=== PATIENT | female | born 1950 | race Caucasian/White ===

== ENCOUNTER 2017-03-18 09:12 | Outpatient (CLI) | payer MEDICARE, MEDICAID ==
--- NOTE | 2017-03-18 11:21 | RAD ---
ABDOMEN ONE VIEW: History: 66-year-old female with history of renal calculus. FINDINGS: Multiple small bilateral renal calculi are again noted. Gas and fecal material is noted in the colon and some fecal material and gastric air partially obscure both kidneys. IMPRESSION: Bilateral renal calculi. No overt ureteral calculus. POS: [facility]
== END 2017-03-18 09:13 | disposition home or self-care (01) ==
LOC: RAD 09:12
PROVIDERS: ATTEND Urology
DX: N20.0 Calculus of kidney (principal)
CPT/HCPCS: 51798; 74000; 99213; G0463

== ENCOUNTER 2017-08-04 09:28 | Outpatient (CLI) | payer MEDICARE, MEDICAID ==
[2017-08-04 10:11] LABS: Anion Gap 9 mmol/L (10-20); BUN (Urea Nitrogen) 24 mg/dL (9.8-20.1); Calc. Creatinine Clearance 0 mL/min (70-130); Calcium 9.7 mg/dL (7.8-10.44); Carbon Dioxide 28 mmol/L (23-31); Chloride 108 mmol/L (98-107); Estimated GFR-MDRD 76; Glucose 99 mg/dL (80-115); Potassium 3.9 mmol/L (3.5-5.1); Sodium 141 mmol/L (136-145)
[2017-08-04 10:16] LABS: Bilirubin Negative (Negative); Blood, Urine Moderate (Negative); Clarity CLEAR (Clear); Glucose, Urine (Dipstick) Negative (Negative); Leukocyte Small (Negative); Nitrite Negative (Negative); Protein, Urine (Dipstick) Negative (Neg-Trace); Specific Gravity, Urine 1.014 (1.002-1.036); Urobilinogen 0.2 mg/dL (0.2-1.0); pH, Urine 7.5 (5.0-9.0)
[2017-08-04 10:26] LABS: Bacteria/HPF None Seen HPF (None Seen); Hyaline Casts/LPF 0-3 HYALINE CAST LPF (0-3 Hyaline); Pathc Cast-AUWi Flag 0.14 (0-2.49); RBC/HPF 21-50 HPF (0-3); Squamous Epithelial 0-3 HPF (0-3)
--- NOTE | 2017-08-04 12:26 | CT ---
CT OF THE ABDOMEN AND PELVIS WITH AND WITHOUT IV CONTRAST: INDICATION: History of renal stone and placement of a previous left renal stent. COMPARISON: CT of the abdomen and pelvis with and without contrast dated 08/06/16. FINDINGS: There has been interval development of a 7 mm calculus within the right renal pelvis from the prior e xamination. There are multiple 3-4 mm nonobstructing calculi within the superior pole of the right k idney. There are 1-2 mm calculi within the mid to inferior pole of the right kidney. The overall ex tent of the renal stone burden is largely stable. The multiple 1-2 mm calculi within the left kidney are relatively stable. There is a 4 mm calculus w ithin the left mid kidney, which is stable. Previously seen 5 mm left UPJ stone is no longer present . There was a small 3 mm stone within the right ureter that is no longer present. There are stable bilateral renal cysts. The largest within the left kidney measures 1.4 cm, which is stable and mildly septated. The largest within the right kidney measures 1.1 cm and is roughly stab le to the prior exam. No gross urothelial lesion is evident. There is only partial opacification of the mid to distal left ureter. No hydronephrosis is evident. No definite solid renal lesion is evident. There is fatty infiltration of the liver. There is a calcified granuloma within the spleen. Pancrea s and adrenal glands are unremarkable. There are scattered colonic diverticula. The bladder, rectum , and perirectal soft tissues appear within normal limits. There is scattered degenerative and osteo arthritic change. IMPRESSION: 1. Interval passage of the left ureteropelvic junction and right ureteral stone present on the shantel rison exam dated 08/06/16. 2. Renal stone burden overall is largely stable. The suspected 5 mm stone within the superior pole of the right kidney on the prior exam is likely slightly increased in size now measuring up to 7 mm w ithin the right renal pelvis. 3. Stable bilateral renal cysts. 4. No gross urothelial lesion. There is suboptimal opacification of the mid to distal left ureter o n the delayed phase images. 5. Fatty liver. 6. Colonic diverticulosis. POS: [facility]
== END 2017-08-04 09:29 | disposition home or self-care (01) ==
LOC: CT 09:28
PROVIDERS: ATTEND Urology
DX: N20.2 Calculus of kidney with calculus of ureter (principal); N28.1 Cyst of kidney, acquired; K76.0 Fatty (change of) liver, not elsewhere classified; K57.30 Diverticulosis of large intestine without perforation or abscess without bleeding
CPT/HCPCS: 36415; 74178; 80048; 81001; 87086

== ENCOUNTER 2017-10-06 10:14 | Outpatient (CLI) | payer MEDICARE, OTHER, MEDICAID ==
[2017-10-06 10:45] LABS: Bilirubin Negative (Negative); Blood, Urine Large (Negative); Clarity CLOUDY (Clear); Glucose, Urine (Dipstick) Negative (Negative); Leukocyte Large (Negative); Nitrite Negative (Negative); Protein, Urine (Dipstick) 30 mg/dL (Neg-Trace); Specific Gravity, Urine 1.015 (1.002-1.036); Urobilinogen 0.2 mg/dL (0.2-1.0); pH, Urine 6.5 (5.0-9.0)
[2017-10-06 10:50] LABS: Bacteria/HPF Rare-Few HPF (None Seen); RBC/HPF GREATER THAN 50-TNTC HPF (0-3); Squamous Epithelial None Seen HPF (0-3)
[2017-10-06 10:54] LABS: Pathc Cast-AUWi Flag 5.23 (0-2.49)
[2017-10-06 11:11] LABS: Hyaline Casts/LPF 0-3 HYALINE CAST LPF (0-3 Hyaline); Other Casts/LPF None Seen LPF (0-3 Hyaline)
--- NOTE | 2017-10-06 12:24 | RAD ---
KUB: HISTORY: Renal calculi. COMPARISON: 09/03/17 CT examination. FINDINGS: The bowel gas pattern is nonobstructed. Punctate 2-3 mm lower pole left renal calculi are seen. In what is felt to be the region of the right renal pelvis is an approximately 7 mm calcification. The lower pole of the right kidney is obscured by stool. Calcifications in the pelvis are felt most like ly to represent phleboliths. IMPRESSION: Bilateral renal calculi. POS: [facility]
== END 2017-10-06 10:15 | disposition home or self-care (01) ==
LOC: RAD 10:14
PROVIDERS: ATTEND Urology
DX: N20.0 Calculus of kidney (principal); R35.0 Frequency of micturition
CPT/HCPCS: 74018; 81001; 87077; 87086; 87186

== ENCOUNTER 2017-10-24 11:25 | Outpatient (CLI) | payer MEDICARE, MEDICAID ==
[2017-10-24 11:57] LABS: Bilirubin Negative (Negative); Blood, Urine Moderate (Negative); Clarity CLEAR (Clear); Glucose, Urine (Dipstick) Negative (Negative); Leukocyte Moderate (Negative); Nitrite Negative (Negative); Protein, Urine (Dipstick) Trace mg/dL (Neg-Trace); Specific Gravity, Urine 1.013 (1.002-1.036); Urobilinogen 0.2 mg/dL (0.2-1.0); pH, Urine 6.5 (5.0-9.0)
[2017-10-24 11:59] LABS: Bacteria/HPF None Seen HPF (None Seen); Hyaline Casts/LPF 4-6 HYALINE CAST LPF (0-3 Hyaline); Pathc Cast-AUWi Flag 0.72 (0-2.49); RBC/HPF 21-50 HPF (0-3); WBC/HPF 21-50 HPF (0-3)
[2017-10-24 12:19] LABS: Renal Epithelial None Seen HPF (0-3); Transitional Epithelial NONE SEEN HPF (0-3)
[2017-10-24 12:19] LABS: Hemoglobin 10.4 g/dL (12.0-16.0); Mean Corpuscular HGB CONC 32.9 g/dL (32.0-36.0); Mean Platelet Volume 7.5 fL (7.4-10.4); Platelet Count 360 thou/uL (130-400); RBC Distribution Width 11.4 % (11.5-14.5); Red Blood Cell (RBC) Count 3.48 mill/uL (4.20-5.40); White Blood Cell (WBC) Count 2.6 thou/uL (4.8-10.8)
[2017-10-24 12:31] LABS: PTT 38.9 SEC (22.9-36.1); Prothrombin Time 13.7 SEC (12.0-14.7)
[2017-10-24 12:35] LABS: Anion Gap 13 mmol/L (10-20); BUN (Urea Nitrogen) 18 mg/dL (9.8-20.1); Calc. Creatinine Clearance 0 mL/min (70-130); Calcium 9.7 mg/dL (7.8-10.44); Carbon Dioxide 24 mmol/L (23-31); Chloride 107 mmol/L (98-107); Estimated GFR-MDRD 80; Glucose 86 mg/dL (80-115); Potassium 3.9 mmol/L (3.5-5.1); Sodium 140 mmol/L (136-145)
== END 2017-10-24 11:26 | disposition home or self-care (01) ==
LOC: LABBT 11:25
PROVIDERS: ATTEND Urology
DX: Z01.818 Encounter for other preprocedural examination (principal); N20.0 Calculus of kidney
CPT/HCPCS: 80048; 81001; 85027; 85610; 85730; 87077; 87086; 87186

== ENCOUNTER 2017-11-12 06:58 | Day surgery (SDC) | payer MEDICARE, MEDICAID ==
[2017-10-24 11:41] VITALS: BMI 18.3
[2017-11-12] MEDS ORDERED: Levofloxacin 500 mg/D5W 100 ml Premix Bag ONE (07:58)
[2017-11-12 08:00] LABS: Hemoglobin 10.8 g/dL (12.0-16.0); Mean Corpuscular Hemoglobin 29.8 pg (27.0-31.0); Mean Corpuscular Volume 90.3 fL (78.0-98.0); Mean Platelet Volume 7.1 fL (7.4-10.4); Platelet Count 312 thou/uL (130-400); RBC Distribution Width 11.5 % (11.5-14.5); Red Blood Cell (RBC) Count 3.62 mill/uL (4.20-5.40); White Blood Cell (WBC) Count 3.8 thou/uL (4.8-10.8)
[2017-11-12] MEDS ORDERED: Iothalamate Meglumine 60% 50 ML VIAL FS ONE (08:00)
[2017-11-12] MEDS ORDERED: Fentanyl 100 MCG/2 ML VIAL ONE (09:03)
--- NOTE | 2017-11-12 09:55 | RAD ---
KUB: INDICATIONS: History of pre-procedure evaluation. COMPARISON: 10/06/2017 FINDINGS: Bilateral renal calculi appear similar. The largest is seen within the region of the inferior pole o f the right kidney, measuring up to 7 to 8 mm. An additional small stone is see in the expected kerri on of the superior pole of the right kidney, measuring up to 6.3 mm. This is better seen on today's exam. There is a slightly increased amount of retained stool within the rectum and right hemicolon, slightly limiting the evaluation. Small punctate stones involving the left renal shadow are likely s table but slightly obscured by the overlying bowel gas pattern. The lung bases are clear. Spondylos is of the lumbar spine is similar. IMPRESSION: 1. Stable bilateral nephrolithiasis. 2. Some limitation of examination, as above. POS: [facility]
[2017-11-12] MEDS ORDERED: Phenazopyridine HCl 97.5 MG TABLET ONE (10:28)
[2017-11-12] MEDS ORDERED: Oxybutynin 5 MG TAB ONE (10:35)
--- NOTE | 2017-11-12 11:39 | RAD ---
RETROGRADE IVP: HISTORY: A 67-year-old female with a history of a right ureteral calculus. Ureteroscopy. COMPARISON: KUB from 11/12/2017. FINDINGS: There is initial injection of the right ureter with a filling defect in the proximal right ureter, ev idence for a proximal ureteral calculus. A wire and right ureteral stent are placed. IMPRESSION: 1. Proximal right ureteral calculus. 2. Placement of right ureteral stent. POS: [facility]
--- NOTE | 2017-11-12 11:53 | OP ---
DATE OF PROCEDURE: 11/12/2017 PREOPERATIVE DIAGNOSES: 1. A 67-year-old female with history of recurrent kidney stone, right renal pelvic stone, 7 mm, mult iple right punctate stones approximately 3 to 4 in number. 2. Left punctate renal lithiasis. POSTOPERATIVE DIAGNOSES: 1. A 67-year-old female with history of recurrent kidney stone, right renal pelvic stone, 7 mm, mult iple right punctate stones approximately 3 to 4 in number. 2. Left punctate renal lithiasis. PROCEDURES: Cystoscopy, right retrograde, right 6 x 20 double-J ureteral stent placement, balloon di latation of the left distal ureter, flexible ureteroscopy, pyeloscopy, laser lithotripsy of stone, ba sket extraction. SURGEON: Mary Ann Kinney D.O. ANESTHESIA: General. COMPLICATIONS: None apparent. DISPOSITION: To recovery room in stable condition. SPECIMEN: Stone for chemical analysis. INDICATIONS FOR THE PROCEDURE AND HISTORY: Ms. Mireles is a 67-year-old female with history of multi ple recurrent kidney stones, she previously underwent surgery for left ureteral calculi due to non-pr ogression. She presents today for elective treatment of her large renal pelvic stone and she desires to proceed with elective treatment. Risks and complications including, but not limited to, bleeding , pain, infection, urosepsis, chronic pain, possible bladder, kidney, ureteral injury, possible prolo nged stent secondary procedure was reviewed. All questions answered to her satisfaction. She has de sired to proceed. DESCRIPTION OF THE PROCEDURE: After an informed consent is signed, patient is taken to the operating room, placed in a dorsal lithotomy position with the genital area prepped and draped in the usual mccartney rgical sterile fashion. A 21-Trinidadian cystoscope was utilized. Her trigone is significantly deviated as she has a grade III-IV cystocele. The trigone had to be reduced manually for me to visualize the UO. The right UO was intubated with a 5 Trinidadian open-ended catheter without difficulty and a retrogra de pyelogram was performed. On retrograde, it appeared that the stone may have migrated into the UPJ region and this was subsequently pushed to the renal pelvis. A 0.35 sensor wire was placed to the r ight upper pole. At this time, using a [employer] 4 cm 12 Trinidadian balloon dilator, we dilated the intramural ureter uneventfully. After dilation of the intramural ureter, a dual-lumen access she ath was able to be passed to the level of the UPJ and a retrograde pyelogram performed demonstrating proper placement. A second working wire, 0.38 Super Stiff wire was then placed into the right upper pole. The dual-lumen access sheath was then removed and an 11/13 Trinidadian x 28 cm navigator was passed to the level of the proximal ureter with ease. A flexible ureteroscope was advanced. We were able to visualize the stone in the UPJ region and this was pushed to the upper pole. Using 365 micron las er fiber, we laser lithotripsied the stone into multiple tiny pieces. I did intent to basket the fra gment; however, they were too small to basket. Therefore, I did not pursue, but we did spend some fu rther time laser lithotripsing the stone into tiny fragments. I surveyed the rest of the collecting system and there were multiple Lance plaques. There were no other stones in the caliceal system am endable to be treated as there were small, within the renal papillae. The ureter was then surveyed d istally demonstrating no evidence of ureteral mucosa trauma nor stone nidus. The navigator was then completely removed and a 6 x 20 double-J ureteral stent was passed without difficulty. Proper placem ent was confirmed on fluoroscopy and on direct visualization and distal tail was left in situ. Bladd er was completely emptied and she tolerated the procedure well. She will hold the Humira until [facility] appointment. Discharged with [place] 5/325 #50, ciprofloxacin until followup, Haven Martino p.r .n. AZO p.r.n. She is to obtain a KUB one hour prior to the appointment. If no evidence of ureteral stone nidus, we will perform cystoscopy stent pull in my office.
[2017-11-12] MEDS ORDERED: Meperidine HCl/PF 25 MG/ML VIAL ONE (11:56)
[2017-11-12] MEDS ORDERED: Lidocaine 1% PF 5 ML VIAL ONE (14:40)
[2017-11-12] MEDS ORDERED: PROPOFOL 200 MG/20 ML VIAL ONE (14:40)
[2017-11-12] MEDS ORDERED: PHENYLEPHRINE-NS 100 MCG/ML 10 ML SYRINGE ONE (14:40)
[2017-11-12] MEDS ORDERED: Glycopyrrolate 0.2 MG/ML 5 ML SYRINGE ONE (14:40)
[2017-11-12] MEDS ORDERED: Ondansetron HCl/PF 4 MG/2 ML Vial ONE (14:40)
[2017-11-12] MEDS ORDERED: Dexamethasone 20 MG/5 ML VIAL ONE (14:40)
== END 2017-11-12 12:55 | disposition home or self-care (01) ==
LOC: SDC 06:58
PROVIDERS: ATTEND Urology
PROC: 0T768DZ Dilation of Right Ureter with Intraluminal Device, Via Natural or Artificial Opening Endoscopic (ICD-10-PCS; principal; 2017-11-12)
PROC: 0TC38ZZ Extirpation of Matter from Right Kidney Pelvis, Via Natural or Artificial Opening Endoscopic (ICD-10-PCS; 2017-11-12)
PROC: BT1DYZZ Fluoroscopy of Right Kidney, Ureter and Bladder using Other Contrast (ICD-10-PCS; 2017-11-12)
DX: N20.0 Calculus of kidney (principal); N28.1 Cyst of kidney, acquired; E03.9 Hypothyroidism, unspecified; M06.9 Rheumatoid arthritis, unspecified; Z87.442 Personal history of urinary calculi; Z79.899 Other long term (current) drug therapy; Z79.52 Long term (current) use of systemic steroids; Z79.2 Long term (current) use of antibiotics
CPT/HCPCS: 52356; 74018; 74420; 82365; 85027; 88300; 96374; C1758; C1769; 36415; J1100; J1956; J2001; J2175; J2405; J2704; J3010; Q9961

== ENCOUNTER 2017-11-20 07:13 | Outpatient (CLI) | payer MEDICARE, MEDICAID ==
--- NOTE | 2017-11-20 07:53 | RAD ---
KUB: INDICATION: History of calculi of the kidneys. FINDINGS: Previously seen calculi overlying the expected region of the right renal pelvis and superior pole of the right kidney seen on the comparison KUB dated 11/12/17 is no longer demonstrated likely removed by lithotripsy. There is a double-J ureteral stent that projects in the expected position. The proxi mal aspect of the ureteral stent is slightly low-lying and may project in the region at the UPJ junct ion. This is slightly lower positioned than seen on the final IVP image dated 11/12/17 at 11:05 a.m. Small phleboliths are seen within the lower left hemipelvis. There is a small nonobstructing calcul us involving the mid to lower pole of the left kidney that is stable. IMPRESSION: 1. Previously seen right-sided renal pelvic stone and superior pole stone is no longer seen. 2. Stable left nephrolithiasis. 3. Right double-J ureteral stent. POS: [facility]
== END 2017-11-20 07:14 | disposition home or self-care (01) ==
LOC: RAD 07:13
PROVIDERS: ATTEND Urology
DX: N20.0 Calculus of kidney (principal); Z96.0 Presence of urogenital implants
CPT/HCPCS: 74018

== ENCOUNTER 2019-06-16 10:44 | Outpatient (CLI) | payer MEDICARE ==
--- NOTE | 2019-06-16 11:06 | RAD ---
KUB: 06/16/2019 COMPARISON: 06/08/2018 HISTORY: Calculus of kidney FINDINGS: There is a faint calcification within the left upper quadrant which may represent a left re nal stone measuring 4 mm. The bowel gas pattern is nonobstructed. Stable calcifications in the left hemipelvis suggest vascular calcification. Stable degenerative changes noted at the lumbosacral junct ion. IMPRESSION: Stable KUB as detailed above.
--- NOTE | 2019-06-16 11:37 | ULT ---
BILATERAL RENAL ULTRASOUND: HISTORY: Kidney stones. FINDINGS: The right kidney measures 9 cm in length and the left kidney measures 11 cm in length. There is a 1 cm cyst in the right kidney and multiple cysts in the left kidney measuring up to 1.5 cm. No hydrone phrosis is seen. There are multiple bilateral renal calculi. The urinary bladder is unremarkable. IMPRESSION: 1. Bilateral renal cysts. 2. Nonobstructing bilateral renal calculi. POS: [facility]
== END 2019-06-16 10:45 | disposition home or self-care (01) ==
LOC: BICULT 10:44
PROVIDERS: ATTEND Urology
DX: N20.0 Calculus of kidney (principal); Q61.01 Congenital single renal cyst; N28.1 Cyst of kidney, acquired
CPT/HCPCS: 36415; 74018; 76770; 80048; 81001; 87086

== ENCOUNTER 2020-10-09 10:42 | Outpatient (CLI) | payer MEDICARE | END 2020-10-09 10:43 | disposition home or self-care (01) | LOC: BICMAMMO 10:42 | PROVIDERS: ATTEND Family Medicine | DX: Z12.31 Encounter for screening mammogram for malignant neoplasm of breast (principal) | CPT/HCPCS: 77063; 77067 ==

== ENCOUNTER 2021-12-04 10:36 | Outpatient (CLI) | payer MEDICARE | END 2021-12-04 10:37 | disposition home or self-care (01) | LOC: BICULT 10:36 | PROVIDERS: ATTEND Urology | DX: N20.0 Calculus of kidney (principal); N28.1 Cyst of kidney, acquired; R19.5 Other fecal abnormalities | CPT/HCPCS: 74018; 76770 ==

== ENCOUNTER 2022-08-20 14:56 | Inpatient (IN) | payer MEDICARE ==
[2022-08-20] MEDS ORDERED: Iopamidol-370 76% 500 ML MDV (1 ML CHARGE) ONE (15:01)
[2022-08-20] MEDS ORDERED: Vancomycin 1 GM/200 ML (FROZEN) BAG ONE (15:41)
[2022-08-20] MEDS ORDERED: Acetaminophen 325 MG TAB PO PRN (17:31)
[2022-08-20] MEDS ORDERED: Calcium Carbonate 500 MG ChewTAB PO PRN (17:36)
[2022-08-20] MEDS ORDERED: Sodium Chloride 0.9% 1,000 ML IV SCH (17:45)
[2022-08-20 17:47] VITALS: BMI 16.9
[2022-08-20] MEDS: Sodium Chloride 0.9% 1,000 ML IV SCH (18:08)
[2022-08-20] MEDS ORDERED: Pantoprazole 40 MG VIAL IVP SCH (21:00)
[2022-08-20] MEDS ORDERED: Fenofibrate Nanocrystallized 145 MG TAB PO SCH (21:00)
[2022-08-21 06:19] LABS: #Lymphocytes 0.9 thou/uL (1.20-3.40); #Monocytes 0.4 thou/uL (0.11-0.59); %Basophils 0.5 % (0.0-1.0); %Eosinophils 0.4 % (0.0-10.0); %Lymphocytes 13.7 % (21.0-51.0); %Neutrophils 78.4 % (42.0-75.0); Hemoglobin 7.3 g/dL (12.0-16.0); Mean Corpuscular HGB CONC 33.1 g/dL (32.0-36.0); Mean Corpuscular Hemoglobin 30.1 pg (27.0-31.0); Mean Corpuscular Volume 90.8 fl (78.0-98.0); Mean Platelet Volume 7.1 fL (7.4-10.4); Platelet Count 349 10x3/uL (130-400); RBC Distribution Width 12.5 % (11.5-14.5); Red Blood Cell (RBC) Count 2.41 mill/uL (4.20-5.40); White Blood Cell (WBC) Count 6.4 10x3/uL (4.8-10.8)
[2022-08-21 06:27] LABS: Anion Gap 11 mmol/L (10-20); BUN (Urea Nitrogen) 24 mg/dL (9.8-20.1); Calc. Creatinine Clearance 28 mL/min (70-130); Calcium 8.2 mg/dL (7.8-10.44); Carbon Dioxide 18 mmol/L (23-31); Chloride 109 mmol/L (98-107); Estimated GFR 60; Glucose 77 mg/dL (83-110); Potassium 3.3 mmol/L (3.5-5.1); Sodium 135 mmol/L (136-145)
[2022-08-21] MEDS: Sodium Chloride 0.9% 1,000 ML IV SCH (06:33)
[2022-08-21] MEDS ORDERED: Potassium Bicarbonate/Cit Ac 20 MEQ TAB PO SCH ×2 (07:45→14:00)
[2022-08-21] MEDS ORDERED: cefTRIAXone\\ROCEPHIN 1 GM in Sodium Chloride 0.9% 100 ML IVPB SCH (09:00)
[2022-08-21] MEDS ORDERED: fentaNYL 50 mcg/mL 1 mL Vial ONE (11:57)
[2022-08-21] MEDS ORDERED: Midazolam HCl 2 mg/2 ml Vial ONE (11:57)
[2022-08-21] MEDS ORDERED: Sodium Bicarbonate 2.5 MEQ/5 ML VIAL ONE (11:57)
[2022-08-21 14:17] LABS: BF Color Yellow; Body Fluid Source Abscess Fluid; Clarity Cloudy/Turbid (Clear)
[2022-08-21 15:58] VITALS: BP 97/55; TEMP 98.3
== END 2022-08-21 17:39 | disposition home or self-care (01) | DRG 689 ==
LOC: ERS 14:56 → T4-A 16:02 → OBSVTOIN 17:45
PROVIDERS: ADMIT Family Medicine; ATTEND Hospitalist
PROC: 0TB03ZX Excision of Right Kidney, Percutaneous Approach, Diagnostic (ICD-10-PCS; principal; 2022-08-21)
DX: N30.00 Acute cystitis without hematuria (principal); E43 Unspecified severe protein-calorie malnutrition; E87.1 Hypo-osmolality and hyponatremia; Z68.1 Body mass index [BMI] 19.9 or less, adult; N17.9 Acute kidney failure, unspecified; M06.9 Rheumatoid arthritis, unspecified; Z20.822 Contact with and (suspected) exposure to COVID-19; E78.5 Hyperlipidemia, unspecified; K21.9 Gastro-esophageal reflux disease without esophagitis; D64.9 Anemia, unspecified; N20.0 Calculus of kidney; Z79.899 Other long term (current) drug therapy; R19.09 Other intra-abdominal and pelvic swelling, mass and lump
CPT/HCPCS: 36415; 50200; 74178; 77012; 80048; 85025; 85060; 87070; 87077; 87186; 87205; 88112; 88305; 88312; 88333; 88341; 88342; 89051; 96365; C9113; G0378; J0696; J2250; J3010; J3370-JW; J3490; J7050; Q9967

== ENCOUNTER 2022-08-22 22:59 | Inpatient (IN) | payer MEDICARE ==
[2022-08-23 00:23] LABS: #Eosinphils 0.1 thou/uL (0.0-0.7); #Lymphocytes 1.3 thou/uL (1.20-3.40); #Monocytes 0.7 thou/uL (0.11-0.59); %Basophils 0.5 % (0.0-1.0); %Eosinophils 0.7 % (0.0-10.0); %Lymphocytes 15.8 % (21.0-51.0); %Monocytes 8.7 % (0.0-10.0); %Neutrophils 74.3 % (42.0-75.0); Hemoglobin 9.3 g/dL (12.0-16.0); Mean Corpuscular HGB CONC 33.3 g/dL (32.0-36.0); Mean Corpuscular Hemoglobin 30.3 pg (27.0-31.0); Mean Corpuscular Volume 91.1 fl (78.0-98.0); Mean Platelet Volume 7.9 fL (7.4-10.4); Platelet Count 488 10x3/uL (130-400); RBC Distribution Width 12.8 % (11.5-14.5); Red Blood Cell (RBC) Count 3.05 mill/uL (4.20-5.40); White Blood Cell (WBC) Count 8.1 10x3/uL (4.8-10.8)
[2022-08-23] MEDS ORDERED: Piperacillin/Tazobactam 3.375 GM VIAL ONE (00:26)
[2022-08-23 00:45] LABS: ALT (SGPT) 14 U/L (8-55); AST (SGOT) 28 U/L (5-34); Albumin 2.9 g/dL (3.4-4.8); Alkaline Phosphatase 36 U/L (40-110); Anion Gap 12 mmol/L (10-20); BUN (Urea Nitrogen) 21 mg/dL (9.8-20.1); Bilirubin, Total 0.5 mg/dL (0.2-1.2); Calc. Creatinine Clearance 0 mL/min (70-130); Calcium 9.2 mg/dL (7.8-10.44); Carbon Dioxide 19 mmol/L (23-31); Chloride 105 mmol/L (98-107); Estimated GFR 59; Globulin 3.6 g/dL (2.4-3.5); Glucose 115 mg/dL (83-110); Magnesium 1.8 mg/dL (1.6-2.6); Potassium 3.2 mmol/L (3.5-5.1); Protein, Total 6.5 g/dL (5.8-8.1); Sodium 133 mmol/L (136-145)
[2022-08-23] MEDS ORDERED: Senokot S 8.6-50 MG TAB PO PRN (00:57)
[2022-08-23] MEDS ORDERED: Ondansetron ODT 4 MG TAB PO PRN (00:57)
[2022-08-23] MEDS ORDERED: Dextrose 5%-Lactated Ringers 1,000 ML IV SCH (01:00)
[2022-08-23] MEDS ORDERED: Vancomycin 1 GM/200 ML (FROZEN) BAG ONE (01:00)
[2022-08-23] MEDS ORDERED: Electrolyte Replacement Protocol 1 EACH FS PRN (01:06)
[2022-08-23] MEDS ORDERED: VANCOMYCIN IVPB SCH (01:12)
[2022-08-23] MEDS ORDERED: Magnesium 2 GM/50 ML(in water) 2 GM in Premix Bag 1 BAG IVPB SCH (03:00)
[2022-08-23] MEDS ORDERED: Magnesium 2 GM/50 ML BAG (IN WATER) ONE (03:47)
[2022-08-23] MEDS: Potassium Chloride 20 MEQ in Premix Bag 1 BAG IVPB SCH ×2 (04:29→06:33)
[2022-08-23] MEDS ORDERED: Potassium Chloride 20 MEQ/100 ML PREMIX BAG ONE ×2 (04:30→06:22)
[2022-08-23] MEDS ORDERED: VANCOMYCIN 1.25 GM/250 ML BAG 1.25 GM in Premix Bag 1 BAG IVPB SCH (09:00)
[2022-08-23] MEDS ORDERED: Vancomycin Sliding Scale 1 EACH IVPB SCH (10:00)
[2022-08-23] MEDS: Multivitamin W/ Minerals 1 TAB PO SCH (10:43)
[2022-08-23] MEDS: Ferrous Sulfate 325 MG TAB PO SCH (10:43)
[2022-08-23] MEDS: Famotidine 20 MG TAB PO SCH (10:43)
[2022-08-23] MEDS ORDERED: Sodium Bicarbonate 2.5 MEQ/5 ML VIAL ONE (14:19)
[2022-08-23] MEDS ORDERED: Lidocaine 1% PF 5 ML VIAL ONE (14:19)
[2022-08-23] MEDS: Loratadine 10 MG TAB PO SCH (20:23)
[2022-08-23] MEDS: Acetaminophen 325 MG TAB PO PRN (20:23)
[2022-08-23] MEDS: Fenofibrate Nanocrystallized 145 MG TAB PO SCH (20:23)
[2022-08-24 00:46] LABS: Vancomycin, Trough 8.3 ug/mL
[2022-08-24] MEDS ORDERED: Vancomycin HCl 750 MG in Sodium Chloride 0.9% 250 ML 250 ML IVPB SCH (02:00)
[2022-08-24] MEDS: Acetaminophen 325 MG TAB PO PRN ×3 (02:35→18:50)
[2022-08-24] MEDS: Ferrous Sulfate 325 MG TAB PO SCH (09:08)
[2022-08-24] MEDS: Famotidine 20 MG TAB PO SCH (09:08)
[2022-08-24 13:56] LABS: Anion Gap 12 mmol/L (10-20); BUN (Urea Nitrogen) 15 mg/dL (9.8-20.1); Calc. Creatinine Clearance 36 mL/min (70-130); Calcium 8.3 mg/dL (7.8-10.44); Carbon Dioxide 18 mmol/L (23-31); Chloride 108 mmol/L (98-107); Estimated GFR 76; Glucose 89 mg/dL (83-110); Potassium 3.5 mmol/L (3.5-5.1); Sodium 134 mmol/L (136-145)
[2022-08-24] MEDS ORDERED: Potassium Chloride 20 MEQ TAB PO SCH (14:15)
[2022-08-24] MEDS: Fenofibrate Nanocrystallized 145 MG TAB PO SCH (20:03)
[2022-08-24] MEDS: Loratadine 10 MG TAB PO SCH (20:03)
[2022-08-24] MEDS ORDERED: Vancomycin 1 GM in Premix Bag 1 BAG IVPB SCH (21:00)
[2022-08-25 01:36] LABS: Vancomycin, Random 10.6 ug/mL (See Comment)
[2022-08-25] MEDS ORDERED: Vancomycin HCl 500 MG in Sodium Chloride 0.9% 100 ML IV SCH (03:00)
[2022-08-25] MEDS: Acetaminophen 325 MG TAB PO PRN ×2 (03:31→15:20)
[2022-08-25 07:29] LABS: #Eosinphils 0.1 thou/uL (0.0-0.7); #Lymphocytes 0.9 thou/uL (1.20-3.40); #Monocytes 0.3 thou/uL (0.11-0.59); #Neutrophils 2.9 thou/uL (1.40-6.50); %Basophils 0.8 % (0.0-1.0); %Eosinophils 2.4 % (0.0-10.0); %Lymphocytes 20.3 % (21.0-51.0); %Monocytes 7.2 % (0.0-10.0); %Neutrophils 69.4 % (42.0-75.0); Hemoglobin 7.7 g/dL (12.0-16.0); Mean Corpuscular HGB CONC 32.5 g/dL (32.0-36.0); Mean Corpuscular Hemoglobin 29.3 pg (27.0-31.0); Mean Corpuscular Volume 90.3 fl (78.0-98.0); Mean Platelet Volume 7.8 fL (7.4-10.4); Platelet Count 396 10x3/uL (130-400); RBC Distribution Width 12.9 % (11.5-14.5); Red Blood Cell (RBC) Count 2.62 mill/uL (4.20-5.40); White Blood Cell (WBC) Count 4.2 10x3/uL (4.8-10.8)
[2022-08-25 07:48] LABS: Anion Gap 10 mmol/L (10-20); BUN (Urea Nitrogen) 13 mg/dL (9.8-20.1); Calc. Creatinine Clearance 39 mL/min (70-130); Calcium 8.3 mg/dL (7.8-10.44); Carbon Dioxide 20 mmol/L (23-31); Chloride 109 mmol/L (98-107); Estimated GFR 83; Glucose 83 mg/dL (83-110); Potassium 3.6 mmol/L (3.5-5.1); Sodium 135 mmol/L (136-145)
[2022-08-25] MEDS: Multivitamin W/ Minerals 1 TAB PO SCH (09:12)
[2022-08-25] MEDS: Ferrous Sulfate 325 MG TAB PO SCH (09:12)
[2022-08-25] MEDS: Famotidine 20 MG TAB PO SCH (09:12)
[2022-08-25] MEDS: Loratadine 10 MG TAB PO SCH (20:12)
[2022-08-25] MEDS: Fenofibrate Nanocrystallized 145 MG TAB PO SCH (20:12)
[2022-08-26 04:56] LABS: #Basophils 0.1 thou/uL (0.0-0.2); #Eosinphils 0.1 thou/uL (0.0-0.7); #Lymphocytes 0.9 thou/uL (1.20-3.40); #Monocytes 0.4 thou/uL (0.11-0.59); #Neutrophils 2.5 thou/uL (1.40-6.50); %Basophils 1.4 % (0.0-1.0); %Eosinophils 1.7 % (0.0-10.0); %Lymphocytes 23.4 % (21.0-51.0); %Monocytes 9.6 % (0.0-10.0); Hemoglobin 7.5 g/dL (12.0-16.0); Mean Corpuscular HGB CONC 31.7 g/dL (32.0-36.0); Mean Corpuscular Hemoglobin 28.7 pg (27.0-31.0); Mean Corpuscular Volume 90.3 fl (78.0-98.0); Mean Platelet Volume 7.6 fL (7.4-10.4); Platelet Count 423 10x3/uL (130-400); White Blood Cell (WBC) Count 3.9 10x3/uL (4.8-10.8)
[2022-08-26 05:04] LABS: Vancomycin, Random 8.4 ug/mL (See Comment)
[2022-08-26 05:09] LABS: Anion Gap 12 mmol/L (10-20); BUN (Urea Nitrogen) 11 mg/dL (9.8-20.1); Calc. Creatinine Clearance 38 mL/min (70-130); Calcium 8.4 mg/dL (7.8-10.44); Carbon Dioxide 20 mmol/L (23-31); Chloride 107 mmol/L (98-107); Estimated GFR 81; Glucose 88 mg/dL (83-110); Potassium 3.5 mmol/L (3.5-5.1); Sodium 135 mmol/L (136-145)
[2022-08-26 05:18] LABS: INR-International Normal Ratio 1.2; Prothrombin Time 15.9 sec (12.0-14.7)
[2022-08-26] MEDS: Acetaminophen 325 MG TAB PO PRN ×2 (05:38→21:26)
[2022-08-26] MEDS ORDERED: Vancomycin HCl 750 MG in Sodium Chloride 0.9% 250 ML 250 ML IVPB SCH (06:00)
[2022-08-26] MEDS ORDERED: Potassium Chloride 20 MEQ TAB PO SCH (08:00)
[2022-08-26] MEDS: Ferrous Sulfate 325 MG TAB PO SCH (08:37)
[2022-08-26] MEDS: Famotidine 20 MG TAB PO SCH (08:38)
[2022-08-26] MEDS: Fenofibrate Nanocrystallized 145 MG TAB PO SCH (21:28)
[2022-08-26] MEDS: Loratadine 10 MG TAB PO SCH (21:28)
[2022-08-27 05:02] LABS: #Eosinphils 0.2 thou/uL (0.0-0.7); #Lymphocytes 1.4 thou/uL (1.20-3.40); #Monocytes 0.5 thou/uL (0.11-0.59); #Neutrophils 1.8 thou/uL (1.40-6.50); %Basophils 1.2 % (0.0-1.0); %Eosinophils 4.6 % (0.0-10.0); %Lymphocytes 35.2 % (21.0-51.0); %Monocytes 12.2 % (0.0-10.0); %Neutrophils 46.8 % (42.0-75.0); Mean Corpuscular HGB CONC 33.3 g/dL (32.0-36.0); Mean Corpuscular Hemoglobin 30.3 pg (27.0-31.0); Mean Corpuscular Volume 90.8 fl (78.0-98.0); Mean Platelet Volume 7.7 fL (7.4-10.4); Platelet Count 423 10x3/uL (130-400); RBC Distribution Width 13.2 % (11.5-14.5); Red Blood Cell (RBC) Count 2.65 mill/uL (4.20-5.40); White Blood Cell (WBC) Count 3.9 10x3/uL (4.8-10.8)
[2022-08-27 05:20] LABS: Anion Gap 11 mmol/L (10-20); BUN (Urea Nitrogen) 9 mg/dL (9.8-20.1); Calc. Creatinine Clearance 38 mL/min (70-130); Calcium 8.7 mg/dL (7.8-10.44); Carbon Dioxide 22 mmol/L (23-31); Chloride 107 mmol/L (98-107); Estimated GFR 81; Glucose 97 mg/dL (83-110); Potassium 3.7 mmol/L (3.5-5.1); Sodium 136 mmol/L (136-145)
[2022-08-27] MEDS: Vancomycin HCl 750 MG in Sodium Chloride 0.9% 250 ML 250 ML IVPB SCH (05:46)
[2022-08-27] MEDS: Famotidine 20 MG TAB PO SCH (08:22)
[2022-08-27] MEDS: Multivitamin W/ Minerals 1 TAB PO SCH (08:22)
[2022-08-27] MEDS: Ferrous Sulfate 325 MG TAB PO SCH (08:22)
[2022-08-27] MEDS: Loratadine 10 MG TAB PO SCH (20:17)
[2022-08-27] MEDS: Fenofibrate Nanocrystallized 145 MG TAB PO SCH (20:17)
[2022-08-28] MEDS: Vancomycin HCl 750 MG in Sodium Chloride 0.9% 250 ML 250 ML IVPB SCH (05:48)
[2022-08-28 06:49] LABS: #Basophils 0.1 thou/uL (0.0-0.2); #Eosinphils 0.1 thou/uL (0.0-0.7); #Monocytes 0.3 thou/uL (0.11-0.59); #Neutrophils 1.4 thou/uL (1.40-6.50); %Basophils 2.1 % (0.0-1.0); %Eosinophils 4.8 % (0.0-10.0); %Monocytes 11.2 % (0.0-10.0); %Neutrophils 47.8 % (42.0-75.0); Hemoglobin 7.4 g/dL (12.0-16.0); Mean Corpuscular HGB CONC 33.5 g/dL (32.0-36.0); Mean Corpuscular Hemoglobin 29.9 pg (27.0-31.0); Mean Corpuscular Volume 89.3 fl (78.0-98.0); Mean Platelet Volume 7.7 fL (7.4-10.4); Platelet Count 394 10x3/uL (130-400); RBC Distribution Width 13.6 % (11.5-14.5); Red Blood Cell (RBC) Count 2.47 mill/uL (4.20-5.40); White Blood Cell (WBC) Count 2.9 10x3/uL (4.8-10.8)
[2022-08-28 07:13] LABS: Anion Gap 11 mmol/L (10-20); BUN (Urea Nitrogen) 8 mg/dL (9.8-20.1); Calc. Creatinine Clearance 40 mL/min (70-130); Calcium 8.4 mg/dL (7.8-10.44); Carbon Dioxide 22 mmol/L (23-31); Chloride 105 mmol/L (98-107); Estimated GFR 85; Glucose 77 mg/dL (83-110); Potassium 3.3 mmol/L (3.5-5.1); Sodium 135 mmol/L (136-145)
[2022-08-28] MEDS ORDERED: Potassium Chloride 20 MEQ TAB PO SCH (08:00)
[2022-08-28] MEDS: Famotidine 20 MG TAB PO SCH (08:37)
[2022-08-28] MEDS: Ferrous Sulfate 325 MG TAB PO SCH (08:37)
[2022-08-28 14:58] LABS: Magnesium 1.7 mg/dL (1.6-2.6)
[2022-08-28] MEDS: Fenofibrate Nanocrystallized 145 MG TAB PO SCH (19:56)
[2022-08-28] MEDS: Loratadine 10 MG TAB PO SCH (19:56)
[2022-08-28] MEDS ORDERED: Magnesium Sulfate In Water 4 GM in Premix Bag 1 BAG IVPB SCH (20:00)
[2022-08-29] MEDS ORDERED: Magnesium 2 GM/50 ML(in water) 2 GM in Premix Bag 1 BAG IVPB SCH (06:00)
[2022-08-29 06:16] LABS: #Basophils 0.1 thou/uL (0.0-0.2); #Eosinphils 0.1 thou/uL (0.0-0.7); #Lymphocytes 1.1 thou/uL (1.20-3.40); #Monocytes 0.5 thou/uL (0.11-0.59); %Basophils 1.6 % (0.0-1.0); %Eosinophils 2.9 % (0.0-10.0); %Lymphocytes 28.7 % (21.0-51.0); %Monocytes 13.4 % (0.0-10.0); %Neutrophils 53.4 % (42.0-75.0); Hemoglobin 8.3 g/dL (12.0-16.0); Mean Corpuscular HGB CONC 32.6 g/dL (32.0-36.0); Mean Corpuscular Hemoglobin 29.6 pg (27.0-31.0); Mean Corpuscular Volume 90.7 fl (78.0-98.0); Mean Platelet Volume 7.7 fL (7.4-10.4); Platelet Count 442 10x3/uL (130-400); RBC Distribution Width 14.1 % (11.5-14.5); Red Blood Cell (RBC) Count 2.79 mill/uL (4.20-5.40); White Blood Cell (WBC) Count 3.8 10x3/uL (4.8-10.8)
[2022-08-29 06:35] LABS: Vancomycin, Trough 9.3 ug/mL
[2022-08-29 06:36] LABS: Anion Gap 11 mmol/L (10-20); BUN (Urea Nitrogen) 8 mg/dL (9.8-20.1); Calc. Creatinine Clearance 40 mL/min (70-130); Calcium 8.5 mg/dL (7.8-10.44); Carbon Dioxide 25 mmol/L (23-31); Chloride 105 mmol/L (98-107); Estimated GFR 85; Glucose 119 mg/dL (83-110); Potassium 3.7 mmol/L (3.5-5.1); Sodium 137 mmol/L (136-145)
[2022-08-29 09:00] LABS: Magnesium 2.8 mg/dL (1.6-2.6)
[2022-08-29] MEDS: Vancomycin HCl 750 MG in Sodium Chloride 0.9% 250 ML 250 ML IVPB SCH (09:26)
[2022-08-29] MEDS: Famotidine 20 MG TAB PO SCH (09:26)
[2022-08-29] MEDS: Ferrous Sulfate 325 MG TAB PO SCH (09:26)
[2022-08-29] MEDS: Vancomycin 1 GM in Premix Bag 1 BAG IVPB SCH (09:27)
[2022-08-29] MEDS: Multivitamin W/ Minerals 1 TAB PO SCH (09:30)
[2022-08-29] MEDS: Loratadine 10 MG TAB PO SCH (20:55)
[2022-08-29] MEDS: Fenofibrate Nanocrystallized 145 MG TAB PO SCH (20:55)
[2022-08-30 06:29] LABS: #Basophils 0.1 thou/uL (0.0-0.2); #Eosinphils 0.1 thou/uL (0.0-0.7); #Monocytes 0.4 thou/uL (0.11-0.59); #Neutrophils 1.1 thou/uL (1.40-6.50); %Basophils 1.9 % (0.0-1.0); %Eosinophils 5.6 % (0.0-10.0); %Lymphocytes 35.5 % (21.0-51.0); %Monocytes 14.2 % (0.0-10.0); %Neutrophils 42.9 % (42.0-75.0); Hemoglobin 7.7 g/dL (12.0-16.0); Mean Corpuscular HGB CONC 32.4 g/dL (32.0-36.0); Mean Corpuscular Hemoglobin 29.6 pg (27.0-31.0); Mean Corpuscular Volume 91.3 fl (78.0-98.0); Mean Platelet Volume 7.9 fL (7.4-10.4); Platelet Count 398 10x3/uL (130-400); RBC Distribution Width 14.3 % (11.5-14.5); Red Blood Cell (RBC) Count 2.59 mill/uL (4.20-5.40); White Blood Cell (WBC) Count 2.7 10x3/uL (4.8-10.8)
[2022-08-30 06:50] LABS: ALT (SGPT) 12 U/L (8-55); AST (SGOT) 24 U/L (5-34); Albumin 2.7 g/dL (3.4-4.8); Alkaline Phosphatase 35 U/L (40-110); Anion Gap 11 mmol/L (10-20); BUN (Urea Nitrogen) 10 mg/dL (9.8-20.1); Bilirubin, Direct 0.3 mg/dL (0.1-0.3); Bilirubin, Total 0.4 mg/dL (0.2-1.2); Calc. Creatinine Clearance 38 mL/min (70-130); Calcium 8.3 mg/dL (7.8-10.44); Carbon Dioxide 22 mmol/L (23-31); Chloride 105 mmol/L (98-107); Estimated GFR 79; Glucose 83 mg/dL (83-110); Magnesium 2.2 mg/dL (1.6-2.6); Potassium 3.3 mmol/L (3.5-5.1); Protein, Total 6.2 g/dL (5.8-8.1); Sodium 135 mmol/L (136-145)
[2022-08-30] MEDS ORDERED: Potassium Chloride 20 MEQ TAB PO SCH (08:00)
[2022-08-30] MEDS: Famotidine 20 MG TAB PO SCH (08:57)
[2022-08-30] MEDS: Vancomycin 1 GM in Premix Bag 1 BAG IVPB SCH (08:57)
[2022-08-30] MEDS: Ferrous Sulfate 325 MG TAB PO SCH (08:57)
[2022-08-30 15:10] LABS: Troponin I 0.016 ng/mL (< 0.028)
[2022-08-30] MEDS ORDERED: Furosemide 20 MG/2 ML VIAL SLOW IVP SCH (16:45)
[2022-08-30] MEDS: Carvedilol 3.125 MG TAB PO SCH (18:20)
[2022-08-30 20:40] LABS: Troponin I 0.018 ng/mL (< 0.028)
[2022-08-30] MEDS: Fenofibrate Nanocrystallized 145 MG TAB PO SCH (22:31)
[2022-08-30] MEDS: Loratadine 10 MG TAB PO SCH (22:31)
[2022-08-31] MEDS: Furosemide 20 MG/2 ML VIAL SLOW IVP SCH ×2 (05:30→14:39)
[2022-08-31 05:37] LABS: Anion Gap 12 mmol/L (10-20); BUN (Urea Nitrogen) 13 mg/dL (9.8-20.1); Calc. Creatinine Clearance 38 mL/min (70-130); Calcium 8.7 mg/dL (7.8-10.44); Carbon Dioxide 25 mmol/L (23-31); Cardiac Risk 3.4 (Less than 4.5); Chloride 104 mmol/L (98-107); Cholesterol 79 mg/dl (< 200 Desired); Estimated GFR 79; Glucose 102 mg/dL (83-110); HDL Cholesterol 23 mg/dL (>60 Neg Risk); LDL Cholesterol, Calculated 37 mg/dL; Magnesium 1.8 mg/dL (1.6-2.6); Potassium 3.5 mmol/L (3.5-5.1); Sodium 137 mmol/L (136-145); Triglycerides 94 mg/dL (Less than 150)
[2022-08-31] MEDS ORDERED: Magnesium 2 GM/50 ML(in water) 2 GM in Premix Bag 1 BAG IVPB SCH ×2 (06:00→08:00)
[2022-08-31 06:07] LABS: Eosinophils 4 % (0-10); Hemoglobin 8.4 g/dL (12.0-16.0); Lymphocytes 42 % (21-51); MDiff Complete? YES; Mean Corpuscular HGB CONC 32.2 g/dL (32.0-36.0); Mean Corpuscular Hemoglobin 29.6 pg (27.0-31.0); Mean Corpuscular Volume 91.9 fl (78.0-98.0); Mean Platelet Volume 7.9 fL (7.4-10.4); Monocytes 8 % (0-10); Neutrophil 45 % (42-75); Nucleated RBC 3 % (0); Platelet Count 395 10x3/uL (130-400); Platelet Morphology Comment Appears Adequate; RBC Distribution Width 14.5 % (11.5-14.5); RBC Morphology Normal; Red Blood Cell (RBC) Count 2.83 mill/uL (4.20-5.40); White Blood Cell (WBC) Count 3.1 10x3/uL (4.8-10.8)
[2022-08-31] MEDS: Famotidine 20 MG TAB PO SCH (08:11)
[2022-08-31] MEDS: Ferrous Sulfate 325 MG TAB PO SCH (08:11)
[2022-08-31] MEDS: Multivitamin W/ Minerals 1 TAB PO SCH (08:11)
[2022-08-31] MEDS: Vancomycin 1 GM in Premix Bag 1 BAG IVPB SCH (08:12)
[2022-08-31] MEDS: Carvedilol 3.125 MG TAB PO SCH ×3 (08:12→17:02)
[2022-08-31 09:17] LABS: Vancomycin, Trough 16.2 ug/mL
[2022-08-31] MEDS: Fenofibrate Nanocrystallized 145 MG TAB PO SCH (21:51)
[2022-08-31] MEDS: Loratadine 10 MG TAB PO SCH (21:52)
[2022-09-01] MEDS ORDERED: Sodium Chloride 0.9% 250 ML IV SCH (02:30)
[2022-09-01] MEDS ORDERED: Sodium Chloride 0.9% 250 ML 250 ML IV SCH (02:45)
[2022-09-01 04:43] LABS: #Lymphocytes 1.1 thou/uL (1.20-3.40); #Monocytes 0.3 thou/uL (0.11-0.59); #Neutrophils 1.8 thou/uL (1.40-6.50); %Basophils 0.9 % (0.0-1.0); %Eosinophils 0.8 % (0.0-10.0); %Lymphocytes 33.1 % (21.0-51.0); %Monocytes 9.9 % (0.0-10.0); %Neutrophils 55.3 % (42.0-75.0); Hemoglobin 8.6 g/dL (12.0-16.0); Mean Corpuscular Hemoglobin 30.8 pg (27.0-31.0); Mean Corpuscular Volume 90.6 fl (78.0-98.0); Mean Platelet Volume 7.8 fL (7.4-10.4); Platelet Count 387 10x3/uL (130-400); RBC Distribution Width 14.7 % (11.5-14.5); White Blood Cell (WBC) Count 3.3 10x3/uL (4.8-10.8)
[2022-09-01 04:59] LABS: Anion Gap 13 mmol/L (10-20); BUN (Urea Nitrogen) 15 mg/dL (9.8-20.1); Calc. Creatinine Clearance 29 mL/min (70-130); Calcium 8.6 mg/dL (7.8-10.44); Carbon Dioxide 25 mmol/L (23-31); Chloride 100 mmol/L (98-107); Estimated GFR 69; Glucose 101 mg/dL (83-110); Sodium 135 mmol/L (136-145)
[2022-09-01] MEDS: Furosemide 20 MG/2 ML VIAL SLOW IVP SCH (06:17)
[2022-09-01] MEDS ORDERED: Potassium Chloride 20 MEQ TAB PO SCH (08:00)
[2022-09-01] MEDS ORDERED: Magnesium 2 GM/50 ML(in water) 2 GM in Premix Bag 1 BAG IVPB SCH (08:00)
[2022-09-01] MEDS: Vancomycin 1 GM in Premix Bag 1 BAG IVPB SCH (08:03)
[2022-09-01] MEDS: Carvedilol 3.125 MG TAB PO SCH ×2 (08:03→16:08)
[2022-09-01] MEDS: Ferrous Sulfate 325 MG TAB PO SCH (08:03)
[2022-09-01] MEDS: Famotidine 20 MG TAB PO SCH (08:03)
[2022-09-01] MEDS: Fenofibrate Nanocrystallized 145 MG TAB PO SCH (22:04)
[2022-09-01] MEDS: Loratadine 10 MG TAB PO SCH (22:04)
[2022-09-02 05:11] LABS: #Basophils 0.1 thou/uL (0.0-0.2); #Eosinphils 0.1 thou/uL (0.0-0.7); #Lymphocytes 1.4 thou/uL (1.20-3.40); #Monocytes 0.5 thou/uL (0.11-0.59); #Neutrophils 1.3 thou/uL (1.40-6.50); %Basophils 2.3 % (0.0-1.0); %Lymphocytes 41.1 % (21.0-51.0); %Monocytes 13.6 % (0.0-10.0); Mean Corpuscular HGB CONC 33.8 g/dL (32.0-36.0); Mean Corpuscular Volume 91.6 fl (78.0-98.0); Mean Platelet Volume 7.7 fL (7.4-10.4); Platelet Count 410 10x3/uL (130-400); RBC Distribution Width 14.8 % (11.5-14.5); Red Blood Cell (RBC) Count 2.91 mill/uL (4.20-5.40); White Blood Cell (WBC) Count 3.4 10x3/uL (4.8-10.8)
[2022-09-02 05:35] LABS: Anion Gap 10 mmol/L (10-20); BUN (Urea Nitrogen) 15 mg/dL (9.8-20.1); Calc. Creatinine Clearance 31 mL/min (70-130); Calcium 8.7 mg/dL (7.8-10.44); Carbon Dioxide 26 mmol/L (23-31); Chloride 104 mmol/L (98-107); Estimated GFR 74; Glucose 109 mg/dL (83-110); Magnesium 2.2 mg/dL (1.6-2.6); Potassium 3.2 mmol/L (3.5-5.1); Sodium 137 mmol/L (136-145)
[2022-09-02] MEDS ORDERED: Potassium Chloride 20 MEQ TAB PO SCH (08:00)
[2022-09-02] MEDS ORDERED: Iopamidol 370 76% 100 ML VIAL ONE (08:50)
[2022-09-02] MEDS ORDERED: PROPOFOL 20 ML ONE (09:24)
[2022-09-02] MEDS: Vancomycin 1 GM in Premix Bag 1 BAG IVPB SCH (11:09)
[2022-09-02] MEDS: Multivitamin W/ Minerals 1 TAB PO SCH (11:11)
[2022-09-02] MEDS: Carvedilol 3.125 MG TAB PO SCH ×2 (11:12→17:11)
[2022-09-02] MEDS: Famotidine 20 MG TAB PO SCH (11:12)
[2022-09-02] MEDS: Ferrous Sulfate 325 MG TAB PO SCH (11:13)
[2022-09-02] MEDS: Acetaminophen 325 MG TAB PO PRN (14:17)
[2022-09-02] MEDS: Loratadine 10 MG TAB PO SCH (21:48)
[2022-09-02] MEDS: Fenofibrate Nanocrystallized 145 MG TAB PO SCH (21:48)
[2022-09-03 04:56] LABS: #Basophils 0.1 thou/uL (0.0-0.2); #Eosinphils 0.2 thou/uL (0.0-0.7); #Lymphocytes 1.4 thou/uL (1.20-3.40); #Monocytes 0.5 thou/uL (0.11-0.59); #Neutrophils 1.7 thou/uL (1.40-6.50); %Basophils 2.3 % (0.0-1.0); %Eosinophils 4.2 % (0.0-10.0); %Lymphocytes 35.5 % (21.0-51.0); %Monocytes 12.9 % (0.0-10.0); %Neutrophils 45.1 % (42.0-75.0); Hemoglobin 8.9 g/dL (12.0-16.0); Mean Corpuscular HGB CONC 33.3 g/dL (32.0-36.0); Mean Corpuscular Hemoglobin 30.6 pg (27.0-31.0); Mean Corpuscular Volume 92.1 fl (78.0-98.0); Platelet Count 394 10x3/uL (130-400); White Blood Cell (WBC) Count 3.8 10x3/uL (4.8-10.8)
[2022-09-03 05:11] LABS: Anion Gap 12 mmol/L (10-20); BUN (Urea Nitrogen) 16 mg/dL (9.8-20.1); Calc. Creatinine Clearance 31 mL/min (70-130); Calcium 8.9 mg/dL (7.8-10.44); Carbon Dioxide 22 mmol/L (23-31); Chloride 105 mmol/L (98-107); Estimated GFR 72; Glucose 87 mg/dL (83-110); Magnesium 1.9 mg/dL (1.6-2.6); Potassium 3.9 mmol/L (3.5-5.1); Sodium 135 mmol/L (136-145)
[2022-09-03 07:36] LABS: Vancomycin, Trough 19.6 ug/mL
[2022-09-03] MEDS ORDERED: Magnesium 2 GM/50 ML(in water) 2 GM in Premix Bag 1 BAG IVPB SCH (08:00)
[2022-09-03] MEDS: Carvedilol 3.125 MG TAB PO SCH (08:20)
[2022-09-03] MEDS: Famotidine 20 MG TAB PO SCH (08:21)
[2022-09-03] MEDS: Ferrous Sulfate 325 MG TAB PO SCH (08:21)
[2022-09-03] MEDS: Vancomycin 1 GM in Premix Bag 1 BAG IVPB SCH (08:22)
[2022-09-03 11:30] VITALS: TEMP 97.5
[2022-09-03 11:31] VITALS: BP 96/64
[2022-09-03 11:47] VITALS: BMI 14.3
== END 2022-09-03 15:01 | disposition home health service (06) | DRG 853 ==
LOC: ERS 22:59 → ERHOLD 08-23 00:25 → OBSVTOIN 08-23 12:55 → T4-A 08-23 14:23 → 2NO 08-30 14:15
PROVIDERS: ADMIT Emergency Medicine; ATTEND Emergency Medicine
PROC: 3E03329 Introduction of Other Anti-infective into Peripheral Vein, Percutaneous Approach (ICD-10-PCS; principal; 2022-08-23)
PROC: 0W9H3ZX Drainage of Retroperitoneum, Percutaneous Approach, Diagnostic (ICD-10-PCS; 2022-08-26)
PROC: 02HV33Z Insertion of Infusion Device into Superior Vena Cava, Percutaneous Approach (ICD-10-PCS; 2022-08-26)
PROC: B5181ZA Fluoroscopy of Superior Vena Cava using Low Osmolar Contrast, Guidance (ICD-10-PCS; 2022-08-26)
PROC: B548ZZA Ultrasonography of Superior Vena Cava, Guidance (ICD-10-PCS; 2022-08-26)
PROC: 3E04329 Introduction of Other Anti-infective into Central Vein, Percutaneous Approach (ICD-10-PCS; 2022-08-26)
PROC: B24BZZ4 Ultrasonography of Heart with Aorta, Transesophageal (ICD-10-PCS; 2022-09-02)
DX: A41.02 Sepsis due to Methicillin resistant Staphylococcus aureus (principal); I50.21 Acute systolic (congestive) heart failure; K68.19 Other retroperitoneal abscess; K68.12 Psoas muscle abscess; K75.0 Abscess of liver; N15.1 Renal and perinephric abscess; E87.1 Hypo-osmolality and hyponatremia; N39.0 Urinary tract infection, site not specified; E46 Unspecified protein-calorie malnutrition; Z68.1 Body mass index [BMI] 19.9 or less, adult; I70.0 Atherosclerosis of aorta; I08.1 Rheumatic disorders of both mitral and tricuspid valves; M06.9 Rheumatoid arthritis, unspecified; K21.9 Gastro-esophageal reflux disease without esophagitis; E87.6 Hypokalemia; R00.0 Tachycardia, unspecified; D64.9 Anemia, unspecified; E03.9 Hypothyroidism, unspecified; N20.0 Calculus of kidney; Z87.442 Personal history of urinary calculi; Z87.440 Personal history of urinary (tract) infections; Z79.899 Other long term (current) drug therapy; Z79.1 Long term (current) use of non-steroidal anti-inflammatories (NSAID); Z86.14 Personal history of Methicillin resistant Staphylococcus aureus infection
CPT/HCPCS: 36415; 36569; 49060; 71045; 74178; 77012; 80048; 80053; 80061; 80076; 80202; 83735; 83880; 84484; 85025; 85610; 87040; 93005; 93010; 93306; 93312; 93970; 96365; 96367; C1729; C1751; J1940; J2543; J2704; J3370; J3370-JW; J3475; J3480; J3490; J7050; Q9967

== ENCOUNTER 2022-10-23 10:03 | Outpatient (CLI) | payer MEDICARE ==
[2022-10-23 11:21] LABS: %Basophils 2.3 % (0.0-2.0); %Eosinophils 4.9 % (0.0-6.0); %Lymphocytes 39.4 % (18.0-47.0); %Monocytes 14.7 % (0.0-10.0); %Neutrophils 38.4 % (40.0-75.0); Hemoglobin 11.6 g/dL (12.0-15.5); Mean Corpuscular HGB CONC 31.8 g/dL (32.0-36.0); Mean Corpuscular Hemoglobin 29.2 pg (27.0-33.0); Mean Corpuscular Volume 91.9 fl (81.6-98.3); Mean Platelet Volume 10.1 fl (7.4-10.4); Platelet Count 449 10x3/uL (150-450); RBC Distribution Width 14.1 % (11.5-14.5); Red Blood Cell (RBC) Count 3.97 10x6/uL (3.90-5.03); White Blood Cell (WBC) Count 3.5 10x3/uL (3.5-10.5)
[2022-10-23 11:22] LABS: #Basophils 0.1 10x3/uL (0.0-0.2); #Eosinphils 0.2 10x3/uL (0.0-0.5); #Monocytes 0.5 10x3/uL (0.0-1.1); #Neutrophils 1.3 10x3/uL (1.5-8.4)
[2022-10-23 11:42] LABS: ALT (SGPT) 13 U/L (8-55); AST (SGOT) 30 U/L (5-34); Albumin 4.3 g/dL (3.4-4.8); Alkaline Phosphatase 45 U/L (40-110); Anion Gap 13 mmol/L (10-20); BUN (Urea Nitrogen) 19 mg/dL (9.8-20.1); Bilirubin, Total 0.5 mg/dL (0.2-1.2); Calc. Creatinine Clearance 0 mL/min (70-130); Calcium 9.8 mg/dL (7.8-10.44); Carbon Dioxide 21 mmol/L (23-31); Chloride 106 mmol/L (98-107); Estimated GFR 79; Globulin 3.4 g/dL (2.4-3.5); Glucose 75 mg/dL (83-110); Potassium 5.1 mmol/L (3.5-5.1); Protein, Total 7.7 g/dL (5.8-8.1); Sodium 135 mmol/L (136-145)
== END 2022-10-23 10:04 | disposition home or self-care (01) ==
LOC: LABBT 10:03
PROVIDERS: ATTEND Internal Medicine Cardiovascular Disease
DX: Z01.818 Encounter for other preprocedural examination (principal)
CPT/HCPCS: 80053; 85025; 93005; 93010

== ENCOUNTER 2022-12-30 14:48 | Outpatient (CLI) | payer MEDICARE ==
[~2022-12-30 14:48] MED LIST: Iopamidol 370 76% 100 ML VIAL ONE
== END 2022-12-30 14:49 | disposition home or self-care (01) ==
LOC: BICCT 14:48
PROVIDERS: ATTEND Urology
DX: N20.0 Calculus of kidney (principal); K68.19 Other retroperitoneal abscess; N28.1 Cyst of kidney, acquired; N32.89 Other specified disorders of bladder; N28.89 Other specified disorders of kidney and ureter
CPT/HCPCS: 74178; Q9967

== ENCOUNTER 2024-01-22 14:12 | Outpatient (CLI) | payer OTHER | END 2024-01-22 14:13 | disposition home or self-care (01) | LOC: BICULT 14:12 | PROVIDERS: ATTEND Urology | DX: N20.0 Calculus of kidney (principal); Q61.01 Congenital single renal cyst; R35.0 Frequency of micturition | CPT/HCPCS: 74018; 76770 ==

== ENCOUNTER 2024-02-24 07:42 | Outpatient (CLI) | payer MEDICARE ==
[2024-02-24] MEDS ORDERED: Iopamidol 370 76% 100 ML VIAL ONE (09:19)
== END 2024-02-24 07:43 | disposition home or self-care (01) ==
LOC: CT 07:42
PROVIDERS: ATTEND Urology
DX: K68.19 Other retroperitoneal abscess (principal); N28.1 Cyst of kidney, acquired; N32.89 Other specified disorders of bladder; N20.0 Calculus of kidney; R93.89 Abnormal findings on diagnostic imaging of other specified body structures
CPT/HCPCS: 74178; Q9967